=== PATIENT | male | born 1935 | race African-American/Black ===

== ENCOUNTER 2018-02-18 02:08 | Inpatient (IN) | payer MEDICARE, BC ==
[~2018-02-18] VITALS: Ht 180.3 cm; Wt 72.1 kg
[2018-02-18] MEDS ORDERED: ONDANSETRON HCL 4MG/2ML INJ IV STA (06:51)
[2018-02-18 07:45] LABS: BASOPHILS % 0.5 % (0.0-2.0); HEMATOCRIT. 38.5 % (42.0-52.0); HEMOGLOBIN. 13.1 g/dL (14.0-18.0); LYMPHOCYTES % 8.8 % (20.0-50.0); MEAN CORPUSCULAR HEMOGLOBIN 30.1 pg (28.0-32.0); MEAN CORPUSCULAR VOLUME 88.3 fL (80.0-94.0); MEAN PLATELET VOLUME 12.1 fl (7.4-10.4); MONOCYTES % 13.3 % (2.0-8.0); NEUTROPHILS % 77.4 % (40.0-76.0); PLATELET 93 x1000/uL (130-400); RED BLOOD CELL COUNT 4.36 mill/uL (4.7-6.1); RED CELL DISTRIBUTION WIDTH 14.4 % (11.6-14.6)
[2018-02-18 07:48] LABS: CLARITY URINE CLEAR (CLEAR); COLOR URINE DARK YELLOW (YELLOW); KETONES URINE TRACE (NEGATIVE); LEUKOCYTE ESTERASE URINE NEGATIVE (NEGATIVE); NITRITE URINE NEGATIVE (NEGATIVE); OCCULT BLOOD URINE NEGATIVE (NEGATIVE); PROTEIN URINE 1+ (NEGATIVE); SPECIFIC GRAVITY URINE 1.025 (1.005-1.030)
[2018-02-18 07:53] LABS: INR 1.1; PROTHROMBIN TIME 11.1 sec (9.1-11.1)
[2018-02-18 07:59] LABS: CHLORIDE 105 mEq/L (98-107)
[2018-02-18] MEDS ORDERED: ACETAMINOPHEN 325MG TABLET PO ONE (09:30)
[2018-02-18] MEDS ORDERED: SODIUM CHLORIDE 0.9% 1,000 ML IV ONE (09:30)
[2018-02-18] MEDS ORDERED: IOHEXOL-300 100 ML BOTTLE ONE (10:03)
[2018-02-18 13:24] VITALS: BP 154/75
[2018-02-18 13:31] VITALS: BP 154/75
[2018-02-18 20:00] VITALS: BP 150/78
[2018-02-18] MEDS ORDERED: MAGNESIUM/ALUMINUM HYDROXIDE/SIMETHICONE 30ML UDC PO PRN (20:30)
[2018-02-18] MEDS ORDERED: ONDANSETRON HCL 4MG/2ML INJ IV PRN (20:30)
[2018-02-18] MEDS ORDERED: GUAIFENESIN 200MG/10ML SUGAR FREE UDC PO PRN (20:30)
[2018-02-18] MEDS ORDERED: ACETAMINOPHEN 325MG TABLET PO PRN (20:30)
[2018-02-18] MEDS ORDERED: ENOXAPARIN 40MG/0.4ML SYR SUBCUT SCH (21:00)
[2018-02-18] MEDS: LORAZEPAM 2MG/ML CPJ IV PRN (21:00)
[2018-02-18] MEDS: SODIUM CHLORIDE 0.9% INJ 3ML FLUSH IVF SCH (21:04)
[2018-02-18 22:11] LABS: T4 FREE 1.09 ng/dL (0.76-1.46)
[2018-02-19] VITALS: BP 148/62
[2018-02-19] MEDS: LORAZEPAM 2MG/ML CPJ IV PRN (04:00)
[2018-02-19] MEDS: SODIUM CHLORIDE 0.9% INJ 3ML FLUSH IVF SCH (04:20)
[2018-02-19 08:00] VITALS: BP 143/74
[2018-02-19 12:00] VITALS: BP 158/82
[2018-02-19 16:00] VITALS: BP 105/66
[2018-02-19] MEDS ORDERED: BENA5TAB6 PO (16:34)
[2018-02-19] MEDS ORDERED: LOVA10TA54 PO (16:34)
== END 2018-02-19 17:33 | disposition home or self-care (01) | DRG 74 ==
LOC: EDBD → ER 02:08 → 7WST 11:28 → EDBEDREQ 11:29 → ENRESERV 11:46
PROVIDERS: ADMIT Internal Medicine; ATTEND Internal Medicine
DX: G90.8 Other disorders of autonomic nervous system (principal); E78.00 Pure hypercholesterolemia, unspecified; E11.9 Type 2 diabetes mellitus without complications; I10 Essential (primary) hypertension; F03.90 Unspecified dementia, unspecified severity, without behavioral disturbance, psychotic disturbance, mood disturbance, and anxiety; W18.30XA Fall on same level, unspecified, initial encounter; Z87.891 Personal history of nicotine dependence; Y93.89 Activity, other specified; Y92.89 Other specified places as the place of occurrence of the external cause; Y99.8 Other external cause status
CPT/HCPCS: 36415; 73521; 73552; 74177; 84439; 84443; 84484; 93005; 96361; 96374; 97163; 99285; J1650; J2060; J2405; J7030; Q9967

== ENCOUNTER 2018-02-21 16:47 | Inpatient (IN) | payer MEDICARE, BC ==
[~2018-02-21] VITALS: Ht 170.2 cm; Wt 67.6 kg
[~2018-02-21 16:47] MED LIST: BENA5TAB6 PO; LOVA10TA54 PO
[2018-02-21] MEDS ORDERED: LIDOCAINE 1%/EPI 1:100,000 10 ML VIAL IJ ONE (18:30)
[2018-02-21] MEDS ORDERED: TETANUS, DIPHTHERIA, PERTUSSIS VAC/PF 0.5ML (>7YR OLD) IM ONE (18:30)
[2018-02-21] MEDS ORDERED: SODIUM CHLORIDE 0.9% 500 ML IV ONE (18:46)
[2018-02-21] MEDS ORDERED: LIDOCAINE HCL/EPINEPHRINE 1%-EPI 1:100,000 20 ML VIAL IJ SCH (19:31)
[2018-02-21 19:33] LABS: HEMATOCRIT. 37.3 % (42.0-52.0); HEMOGLOBIN. 12.6 g/dL (14.0-18.0); MEAN CORPUSCULAR HEMOGLOBIN 29.8 pg (28.0-32.0); MEAN CORPUSCULAR VOLUME 88.2 fL (80.0-94.0); MEAN PLATELET VOLUME 11.8 fl (7.4-10.4); PLATELET 156 x1000/uL (130-400); RED BLOOD CELL COUNT 4.23 mill/uL (4.7-6.1); RED CELL DISTRIBUTION WIDTH 14.1 % (11.6-14.6)
[2018-02-21 19:39] LABS: CHLORIDE 103 mEq/L (98-107)
[2018-02-21 19:40] LABS: PARTIAL THROMBOPLASTIN TIME 28.7 sec (23.4-31.0); PROTHROMBIN TIME 10.3 sec (9.1-11.1)
[2018-02-21 19:43] LABS: ETHANOL BLOOD < 10 mg/dL
[2018-02-21 19:47] LABS: PLATELET ESTIMATE NORMAL
[2018-02-21 21:14] LABS: CLARITY URINE CLEAR (CLEAR); COLOR URINE YELLOW (YELLOW); KETONES URINE NEGATIVE (NEGATIVE); LEUKOCYTE ESTERASE URINE NEGATIVE (NEGATIVE); NITRITE URINE NEGATIVE (NEGATIVE); OCCULT BLOOD URINE 1+ (NEGATIVE); PROTEIN URINE TRACE (NEGATIVE); SPECIFIC GRAVITY URINE 1.019 (1.005-1.030)
[2018-02-21 21:28] LABS: *BENZODIAZEPINES SCREEN URINE NEGATIVE (NEGATIVE); *COCAINE SCREEN URINE NEGATIVE (NEGATIVE); METHADONE URINE SCREEN NEGATIVE (NEGATIVE)
[2018-02-21 21:29] LABS: *AMPHETAMINES SCREEN URINE NEGATIVE (NEGATIVE); *BARBITURATES SCREEN URINE NEGATIVE (NEGATIVE); CANNABINOID URINE SCREEN NEGATIVE (NEGATIVE); OPIATES URINE SCREEN NEGATIVE (NEGATIVE); PHENCYCLIDINE URINE SCREEN NEGATIVE (NEGATIVE)
[2018-02-21] MEDS ORDERED: LORAZEPAM 2MG/ML CPJ IV ONE (21:30)
[2018-02-21] MEDS ORDERED: ACETAMINOPHEN 325MG TABLET PO PRN (23:45)
[2018-02-21] MEDS ORDERED: GUAIFENESIN 200MG/10ML SUGAR FREE UDC PO PRN (23:45)
[2018-02-21] MEDS ORDERED: MAGNESIUM/ALUMINUM HYDROXIDE/SIMETHICONE 30ML UDC PO PRN (23:45)
[2018-02-21] MEDS ORDERED: ONDANSETRON HCL 4MG/2ML INJ IV PRN (23:45)
[2018-02-21] MEDS ORDERED: IPRATROPIUM/ALBUTEROL 0.5-3(2.5)MG/3ML NEB INH PRN (23:45)
[2018-02-21] MEDS ORDERED: DOCUSATE SODIUM 100MG CAPSULE PO PRN (23:45)
[2018-02-21] MEDS ORDERED: CLONIDINE 0.1MG TABLET PO PRN (23:45)
[2018-02-22 01:22] LABS: CHLORIDE 107 mEq/L (98-107)
[2018-02-22 06:38] LABS: BASOPHILS % 0.7 % (0.0-2.0); EOSINOPHILS % 1.3 % (0.0-5.0); HEMOGLOBIN. 12.8 g/dL (14.0-18.0); MEAN CORPUSCULAR VOLUME 88.8 fL (80.0-94.0); MEAN PLATELET VOLUME 10.9 fl (7.4-10.4); MONOCYTES % 13.7 % (2.0-8.0); NEUTROPHILS % 70.3 % (40.0-76.0); PLATELET 151 x1000/uL (130-400); RED BLOOD CELL COUNT 4.28 mill/uL (4.7-6.1); RED CELL DISTRIBUTION WIDTH 14.3 % (11.6-14.6)
[2018-02-22 06:51] LABS: CREATINE KINASE MB FRACTION 2.7 ng/mL (0.5-3.6)
[2018-02-22 14:00] VITALS: BP 141/75
[2018-02-22 14:25] VITALS: BP 141/75
[2018-02-22 16:34] LABS: CREATINE KINASE MB FRACTION 2.2 ng/mL (0.5-3.6)
[2018-02-22] MEDS: ENOXAPARIN 40MG/0.4ML SYR SUBCUT SCH (17:09)
[2018-02-22] MEDS: BENAZEPRIL 5MG TABLET PO SCH (17:09)
[2018-02-22 20:00] VITALS: BP 166/91
[2018-02-22] MEDS: THIAMINE HCL 100MG TABLET PO SCH (20:03)
[2018-02-22] MEDS: LORAZEPAM 0.5MG TABLET PO PRN (20:03)
[2018-02-22] MEDS: ATORVASTATIN CALCIUM 10MG TABLET PO SCH (20:03)
[2018-02-23] VITALS: BP 145/88
[2018-02-23 04:00] VITALS: BP 149/81
[2018-02-23 07:04] LABS: BASOPHILS % 1.1 % (0.0-2.0); EOSINOPHILS % 1.5 % (0.0-5.0); HEMATOCRIT. 38.4 % (42.0-52.0); HEMOGLOBIN. 12.8 g/dL (14.0-18.0); LYMPHOCYTES % 11.1 % (20.0-50.0); MEAN CORPUSCULAR HEMOGLOBIN 29.4 pg (28.0-32.0); MEAN CORPUSCULAR VOLUME 88.5 fL (80.0-94.0); MEAN PLATELET VOLUME 11.5 fl (7.4-10.4); MONOCYTES % 9.6 % (2.0-8.0); NEUTROPHILS % 76.7 % (40.0-76.0); PLATELET 173 x1000/uL (130-400); RED BLOOD CELL COUNT 4.34 mill/uL (4.7-6.1); RED CELL DISTRIBUTION WIDTH 14.4 % (11.6-14.6)
[2018-02-23 07:46] LABS: CHLORIDE 104 mEq/L (98-107)
[2018-02-23 08:43] VITALS: BP 143/70
[2018-02-23] MEDS: BENAZEPRIL 5MG TABLET PO SCH (08:44)
[2018-02-23] MEDS: THIAMINE HCL 100MG TABLET PO SCH (08:44)
[2018-02-23] MEDS: POTASSIUM CHLORIDE 20MEQ TABLET SR PO SCH (11:08)
[2018-02-23] MEDS: ENOXAPARIN 40MG/0.4ML SYR SUBCUT SCH (14:40)
[2018-02-23 16:00] VITALS: BP 132/68
[2018-02-23 20:00] VITALS: BP 136/61
[2018-02-23] MEDS: ATORVASTATIN CALCIUM 10MG TABLET PO SCH (20:30)
[2018-02-23] MEDS: LORAZEPAM 0.5MG TABLET PO PRN (23:39)
[2018-02-24] VITALS (7 sets, daily range): BP systolic 114–170; BP diastolic 69–89
[2018-02-24] MEDS ORDERED: LORAZEPAM 0.5MG TABLET PO PRN (06:00)
[2018-02-24 06:48] LABS: EOSINOPHILS % 1.6 % (0.0-5.0); HEMATOCRIT. 37.1 % (42.0-52.0); HEMOGLOBIN. 12.5 g/dL (14.0-18.0); LYMPHOCYTES % 12.8 % (20.0-50.0); MEAN CORPUSCULAR HEMOGLOBIN 29.7 pg (28.0-32.0); MEAN CORPUSCULAR VOLUME 87.7 fL (80.0-94.0); MEAN PLATELET VOLUME 11.3 fl (7.4-10.4); MONOCYTES % 10.5 % (2.0-8.0); NEUTROPHILS % 74.1 % (40.0-76.0); PLATELET 187 x1000/uL (130-400); RED BLOOD CELL COUNT 4.23 mill/uL (4.7-6.1)
[2018-02-24 06:59] LABS: CHLORIDE 106 mEq/L (98-107)
[2018-02-24] MEDS: THIAMINE HCL 100MG TABLET PO SCH (08:16)
[2018-02-24] MEDS: POTASSIUM CHLORIDE 20MEQ TABLET SR PO SCH (08:16)
[2018-02-24] MEDS: BENAZEPRIL 5MG TABLET PO SCH (08:17)
[2018-02-24] MEDS ORDERED: POTA20TA82 PO (12:43)
[2018-02-24] MEDS ORDERED: THIA100T72 PO (12:43)
== END 2018-02-24 18:25 | disposition home health service (06) | DRG 580 ==
LOC: ER 16:47 → 8WST 22:22 → EDBD 22:22 → EDBEDREQTM 22:27 → EDBEDREQ 22:27 → ENRESERV 02-22 13:43
PROVIDERS: ADMIT Internal Medicine; ATTEND Internal Medicine
PROC: 0JQ10ZZ Repair Face Subcutaneous Tissue and Fascia, Open Approach (ICD-10-PCS; principal; 2018-02-21)
DX: S01.81XA Laceration without foreign body of other part of head, initial encounter (principal); E44.1 Mild protein-calorie malnutrition; N17.9 Acute kidney failure, unspecified; R55 Syncope and collapse; I10 Essential (primary) hypertension; E11.9 Type 2 diabetes mellitus without complications; S01.511A Laceration without foreign body of lip, initial encounter; G30.9 Alzheimer's disease, unspecified; E78.5 Hyperlipidemia, unspecified; F02.80 Dementia in other diseases classified elsewhere, unspecified severity, without behavioral disturbance, psychotic disturbance, mood disturbance, and anxiety; M71.22 Synovial cyst of popliteal space [Baker], left knee; S01.112A Laceration without foreign body of left eyelid and periocular area, initial encounter; W18.30XA Fall on same level, unspecified, initial encounter; Y93.89 Activity, other specified; Y92.89 Other specified places as the place of occurrence of the external cause; Y99.8 Other external cause status; Z68.23 Body mass index [BMI] 23.0-23.9, adult
CPT/HCPCS: 12011; 36415; 70551; 71045; 72170; 80048; 80061; 80305; 82550; 82553; 83735; 83880; 84443; 84484; 90471; 90715; 93005; 93306; 93880; 99285; G0482; J1650; J2060; J3490; J7040